=== PATIENT | male | born 1985 | race Two or more races ===

== ENCOUNTER 2025-01-11 17:49 | Emergency (ER) | payer MEDICAID, OTHER ==
[~2025-01-11] VITALS: Ht 160 cm; Wt 63.0 kg
[2025-01-11 18:16] VITALS: TEMP 98.4
[2025-01-11] MEDS ORDERED: DIPH50CA37 PO (20:06)
[2025-01-11] MEDS ORDERED: PERM60CR4 TP (20:06)
[2025-01-11 20:27] VITALS: BP 122/77; PULSE 69; RESP 15; O2SAT 98
== END 2025-01-11 20:30 | disposition home or self-care (01) ==
LOC: EMS 17:57
DX: L30.9 Dermatitis, unspecified (principal)
CPT/HCPCS: 99282; Z7502